=== PATIENT | male | born 1960 | race Caucasian/White ===

== ENCOUNTER → 2017-03-06 | Emergency (ER) | payer OTHER ==
[~2017-03-06] MED LIST: COZAAR100 MG; DIPHENOXYLATE-A1 TAB PO; PROTONIX40 MG PO; SYNTHROID137 MCG; ZANTAC300 MG PO
== END | disposition left against medical advice (07) ==
LOC: ER 12:34
DX: Z53.20 Procedure and treatment not carried out because of patient's decision for unspecified reasons (principal)

== ENCOUNTER 2020-09-02 06:42 | Emergency (ER) | payer OTHER ==
[~2020-09-02] VITALS: Ht 180.3 cm; Wt 86.2 kg
[2020-09-02] MEDS ORDERED: DIPHENOXYLATE-1 EACH PO (13:20)
[2020-09-02] MEDS ORDERED: PEPCID AC20 MG PO (13:20)
[2020-09-02] MEDS ORDERED: LEVSIN/SL0.125 MG PO (13:20)
[2020-09-02] MEDS ORDERED: INTESTINEX680 M1 PO (13:20)
== END 2020-09-02 15:55 ==
LOC: ER 06:42
DX: R19.7 Diarrhea, unspecified (principal)

== ENCOUNTER 2021-03-22 08:00 | Outpatient (CLI) | payer OTHER ==
[~2021-03-22 08:00] MED LIST changes: +DIPHENOXYLATE-1 EACH PO; +INTESTINEX680 M1 PO; +LEVSIN/SL0.125 MG PO; +PEPCID AC20 MG PO
== END 2021-03-22 08:30 | disposition home or self-care (01) ==
LOC: PPH VACUNA 08:00
PROVIDERS: ATTEND Emergency Medicine Pediatric Emergency Medicine
DX: Z23 Encounter for immunization (principal)

== ENCOUNTER 2023-02-27 08:53 | Outpatient (CLI) | payer OTHER | END 2023-02-27 09:00 | disposition home or self-care (01) | LOC: SONOGRAMA 08:53 | PROVIDERS: ATTEND Pathology Anatomic Pathology & Clinical Pathology | DX: E04.2 Nontoxic multinodular goiter (principal) ==